=== PATIENT | female | born 1950 | race Caucasian/White ===

== ENCOUNTER 2016-08-02 08:59 | Inpatient (IN) ==
[2016-08-02] MEDS ORDERED: CLINDAMYCIN INJ 600 MG in PREMIX 1 EACH IV STA (09:41)
[2016-08-02] MEDS ORDERED: CLINDAMYCIN INJ 50 ML IV ONE (09:53)
--- NOTE | 2016-08-02 10:04 | XRay Report ---
Referring Physician: Pool Aguilar Exam: XR hand 3V RT Date: August 02, 2016 at 9:40 AM Reason: Infection right hand, status post cat bite, initial encounter Comparison: None Findings: No acute fracture, dislocation or osseous destructive process is identified. There is prominent degenerative change at the fifth DIP and PIP joints with possible osseous fusion at the fifth DIP joint. There is also mild scattered degenerative change at the remaining interphalangeal joints. Impression: 1. No acute osseous process is identified. 2. Degenerative change at the right hand as above, most prominent at the fifth digit. PROCEDURE INTERPRETED AT [facility] DEPARTMENT OF RADIOLOGY Final Report Signed by: Dr. Nahomy Muir
--- NOTE | 2016-08-02 10:22 | Emergency Department Note ---
Maria C Palma Gwan, am scribing for, and in the presence of, Pool Aguilar M.D. 09:33. Jeff Palma Howard T, M.D., personally performed the services described in this documentation, ascribed by Sung Lombardi in my presence, and it is both accurate and complete . Arrival - Arrival Chief Complaint: Animal Bite Stated Complaint: R hand swollen,burning ED Nursing Triage Note: Pt c/o right hand pain, swelling, and redness since yesterday. States he cat bit her right hand 1 wk ago. Mode of Arrival: Ambulatory Limitations: No Limitations Source: Patient, Old Records Reviewed, RN Notes Reviewed Time Seen by Provider: 08/02/16 09:15 - History of Present Illness HPI Narrative: Pt is a 65 y/o female who presents to the ED for further evaluation of pain to the right hand with an onset yesterday. Patient stated that his cat bit him in that area 1 week ago but he began to have erythema, edema and pain yesterday with no relief prompting his visit to the ED today for further evaluation. Patient confirmed that the cat is her pet and that the cat is UTD with immunization. She denies any SOB, fever, N/V or any other injury. No other problems/complaints reported in ED. Onset (ago): week(s) Consistency: constant Severity: moderate Allergies/Adverse Reactions: Allergies Allergy/AdvReac Type Severity Reaction Status Date / Time No Known Allergies Allergy Verified 08/02/16 09:04 Medical,Surgical,& Family Hx - Medical History Endocrine: History of: Thyroid Disorder Musculoskeletal: History of: Musculoskeletal Problems (osteo arthritis) Other: History of: Miscellaneous Medical Problems (Sojurnes) - Social History Smoking Status: Current every day smoker Exam Vital Signs: Vital Signs Temperature 99.9 F H 08/02/16 09:27 Pulse Rate 108 H 08/02/16 09:27 Respiratory Rate 20 08/02/16 09:27 Blood Pressure 184/85 08/02/16 09:27 O2 Sat by Pulse Oximetry 99 08/02/16 09:00 - General General appearance: alert, in no apparent distress - Head Head exam: Present: atraumatic, normocephalic - Extremities Exam Extremities exam: Present: other (erythema, edema and tenderness noted to right upper extremity) - Neurological Exam Neurological exam: Present: alert, oriented X3, CN II-XII intact. Absent: motor sensory deficit - Psychiatric Psychiatric exam: Present: normal affect, normal mood - Skin Skin exam: Present: other (erythema, edema and tenderness noted to right upper extremity) Course Course Narrative: Medical decision making: Significant cellulitis of the right hand extending up the right arm, will admit for IV antibiotics to the hospitalist overnight. Results - Diagnostic Findings Procedure: X-ray: report reviewed by me (R hand: no evidence of osteo or FB) Disposition Clinical Impression: Cat bite, Right arm cellulitis, Cellulitis of right hand Case discussed with: patient, patient's family Disposition: Disch/Xfer-[facility]ps[facility] Term Hos Condition: Stable Time of Disposition: 10:22
[2016-08-02 10:37] LABS: Basophils % 0.2 % (0.0-0.8); Eosinophils % 0.1 % (0.00-10.9); Hematocrit 36.4 VOL% (35.7-47.0); Hemoglobin 12.6 GM/DL (12.0-16.0); Immature Granulocytes % 0.4 %; Immature Granulocytes Absolute 0.05 #; Lymphocytes # 0.7 10*3/uL (1.4-4.0); Lymphocytes % 5.9 % (21.3-54.2); Mean Corpuscular HGB Conc 34.6 GM/DL (32-36); Mean Corpuscular Hemoglobin 33 PG (27-34); Mean Corpuscular Volume 95.8 FL (87-102); Mean Platelet Volume 10.1 FL (9.6-12.0); Monocytes # 0.7 10*3/uL (0.11-0.8); Monocytes % 6.4 % (1.7-12.7); Neutrophils # 9.9 10*3/uL (1.4-7.4); Platelet Count 144 T/CUMM (130-400); Red Cell Distribution Width 13.2 % (9.3-17.3); White Blood Count 11.3 T/CUMM (4-12)
[2016-08-02 10:56] LABS: Osmolality,Calculated 276.5 MOS/KG (273-304); Potassium 3.7 MMOL/L (3.5-5.1)
--- NOTE | 2016-08-02 11:05 | Hospitalist History & Physical ---
<Lea Wells - Last Filed: 08/02/16 11:13> Assessment and Plan (1) Cellulitis of right hand Status: Acute Assessment and plan: Will start empiric antibiotics and hydrate. Current Visit: Yes (2) Right arm cellulitis Status: Acute Assessment and plan: Will start empiric antibiotics, DVT prophylaxis, and manage pain. Current Visit: Yes (3) Nicotine addiction Status: Acute Assessment and plan: Discussed in great detail smoking cessiation, patient has no desire to stop. Nicotine patch offered admission. Current Visit: Yes History of Present Illness Chief complaint: right hand pain History of present illness: This is a very pleasant 65 year old female that presented to the ED at [facility] this morning for evaluation of her right hand. She was a medical history significant for hypothyroidism,osteoarthritis, nicotine abuse , and Sjogren's syndrome. She reports no surgical history at the time of presentation. She is a current smoker. She reports that her cat bit her right hand over a week ago. She reports that her cat's immunization's are up-to-date. She attempted to treat the area at home; however she noted that her right arm became red, warm, painful, and swollen on yesterday. The pain became unbearable on this morning prompting her to present the ED for further evaluation. Labs were obtained; which were essentially unremarkable. After discussion with both Dr. Aguilar and Dr. Hills, the patient will be admitted to the hospitalist service for continuation of care. Home Medications Medication Instructions Recorded Confirmed Type Cholecalciferol (Vitamin D3) 2,000 unit PO 1200 08/02/16 08/02/16 History [Vitamin D3] Hydroxychloroquine [Plaquenil] 200 mg PO BID 08/02/16 08/02/16 History Levothyroxine Tab [Synthroid Tab] 150 mcg PO BEDTIME 08/02/16 08/02/16 History predniSONE TAB [PredniSONE] 5 mg PO QAM 08/02/16 08/02/16 History Allergies Allergy/AdvReac Type Severity Reaction Status Date / Time No Known Allergies Allergy Verified 08/02/16 13:28 Medical,Surgical,& Family Hx - Medical History Endocrine: History of: Thyroid Disorder Musculoskeletal: History of: Musculoskeletal Problems (osteo arthritis) Other: History of: Miscellaneous Medical Problems (Sojurnes) - Social History Smoking Status: Current every day smoker Have you smoked in the last 12 months: Yes Time spent discussing smoking cessation with patient: more than 10 minutes Frequency of Alcohol Use: None Type of Drug Use: None Marital Status: Single Lives With:: Alone Functional capacity: independent ambulation 12 point system: reviewed and no additional remarkable complaints except as stated Exam - Constitutional Vitals: Period Temp Pulse Resp BP Sys/Lowery Pulse Ox Last 24 Hr 99.9 F-99.9 F 108-108 20-20 184-184/85-85 99 General appearance: normal weight, no acute distress - Head Head exam: Present: normal inspection, normocephalic, atraumatic - Eye Eye exam: Present: EOMI. Absent: conjunctival injection, nystagmus Pupils: Present: STEPHANY, normal accommodation - ENT ENT exam: Present: normal exam, normal external ear exam, normal oropharynx - Neck Neck exam: Present: normal inspection. Absent: lymphadenopathy, meningismus, tenderness, thyromegaly - Respiratory Respiratory exam: Present: clear to auscultation bilaterally. Absent: rales, rhonchi, stridor, wheezes - Cardiovascular Cardiovascular exam: Present: regular rate and rhythm. Absent: carotid bruit, diastolic murmur, gallop, JVD, rubs, systolic murmur - GI/Abdominal GI/Abdominal exam: Present: normal bowel sounds, soft. Absent: firm, guarding, tenderness - Extremities Exam Extremities exam: Present: normal capillary refill, full ROM, edema (right arm) , other (small open area to right hand) - Back Exam Back exam: Present: normal inspection - Neurological Exam Neurological exam: Present: alert, oriented X3, CN II-XII intact - Psychiatric Psychiatric exam: Present: normal affect, normal mood - Skin Skin exam: Present: normal color, warm, dry Results - Labs CBC & BMP: 08/02/16 10:24 08/02/16 10:24 Lab Results: I have reviewed the past 24 hour labs <Lonnie Hills - Last Filed: 08/02/16 15:33> History of Present Illness History of present illness: Patient seen and examined along with USAMA Wells, agree with history, assessment and plan as documented. 65 y/o WF presents s/p cat bite 1 week ago, now with right hand pain, redness and swelling which started yesterday. 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 This makes a toxo infection unlikely. But she does have sjogren's syndrome , on prednisone and plaquenil. So she does have reasons to be immunocompromised. She is afebrle without leukocytosis. Will monitor overnight, treat with IV antibiotics. If improved, possible discharge tomorrow. Exam - Constitutional Vitals: Period Temp Pulse Resp BP Sys/Lowery Pulse Ox Last 24 Hr 99.5 F 89 20 151/75 97 Results - Labs CBC & BMP: 08/02/16 10:24 08/02/16 10:24
[2016-08-02] MEDS ORDERED: DIPH/TET/ACEL PERT BOOSTER VACCINE 0.5 ML VIAL IM ONE ×2 (11:38→11:58)
[2016-08-02] MEDS ORDERED: ACETAMINOPHEN 325 MG TABLET PO PRN (13:23)
[2016-08-02] MEDS ORDERED: NICOTINE 21 MG/24 HR PATCH TRANSDERM PRN (13:23)
[2016-08-02] MEDS ORDERED: ZALEPLON 5 MG CAPSULE PO PRN (13:23)
[2016-08-02] MEDS ORDERED: ONDANSETRON 4 MG/2 ML VIAL IV PRN (13:23)
[2016-08-02] MEDS ORDERED: DOCUSATE SODIUM 100 MG CAPSULE PO PRN (13:23)
[2016-08-02] MEDS: CLINDAMYCIN INJ 600 MG in PREMIX 1 EACH IV SCH ×3 (13:33→22:37)
[2016-08-02] MEDS: CHOLECALCIFEROL 1,000 UNIT TABLET PO SCH (13:40)
[2016-08-02] MEDS: SODIUM CHLORIDE 0.9% 1,000 ML IV SCH ×2 (13:40→22:37)
[2016-08-02] MEDS: ENOXAPARIN 40 MG/0.4 ML SYRINGE SUBCUT SCH (13:40)
[2016-08-02] MEDS: HYDROXYCHLOROQUINE 200 MG TABLET PO SCH (21:14)
[2016-08-02] MEDS: LEVOTHYROXINE 150 MCG TABLET PO SCH (21:15)
[2016-08-03] MEDS: CLINDAMYCIN INJ 600 MG in PREMIX 1 EACH IV SCH ×4 (06:02→20:53)
[2016-08-03] MEDS: SODIUM CHLORIDE 0.9% 1,000 ML IV SCH ×2 (06:02→15:35)
[2016-08-03 06:41] LABS: Basophils % 0.3 % (0.0-0.8); Eosinophils % 0.2 % (0.00-10.9); Hematocrit 33.3 VOL% (35.7-47.0); Hemoglobin 11.1 GM/DL (12.0-16.0); Immature Granulocytes % 0.8 %; Immature Granulocytes Absolute 0.05 #; Lymphocytes % 16.2 % (21.3-54.2); Mean Corpuscular HGB Conc 33.3 GM/DL (32-36); Mean Corpuscular Hemoglobin 32 PG (27-34); Mean Corpuscular Volume 96.5 FL (87-102); Mean Platelet Volume 10.7 FL (9.6-12.0); Monocytes # 0.5 10*3/uL (0.11-0.8); Monocytes % 8.4 % (1.7-12.7); Neutrophils # 4.7 10*3/uL (1.4-7.4); Neutrophils % 74.1 % (38.7-73.9); Platelet Count 122 T/CUMM (130-400); Red Blood Count 3.45 MC/CUMM (3.8-5.5); Red Cell Distribution Width 13.4 % (9.3-17.3); White Blood Count 6.3 T/CUMM (4-12)
[2016-08-03 07:23] LABS: Albumin 3.1 G/DL (3.4-5.0); Calcium 8.4 MG/DL (8.5-10.1); Magnesium 2.3 MG/DL (1.8-2.4); Potassium 3.8 MMOL/L (3.5-5.1); Risk Ratio 2.1; Thyroid Stimulating Hormone 2.2 uIU/ml (0.358-3.74); Total Protein 5.6 G/DL (6.4-8.3)
[2016-08-03] MEDS: ENOXAPARIN 40 MG/0.4 ML SYRINGE SUBCUT SCH (09:53)
[2016-08-03] MEDS: HYDROXYCHLOROQUINE 200 MG TABLET PO SCH ×2 (09:53→20:53)
[2016-08-03] MEDS: predniSONE 5 MG TABLET PO SCH (09:53)
[2016-08-03] MEDS: PANTOPRAZOLE 40 MG TABLET PO SCH (09:53)
--- NOTE | 2016-08-03 10:02 | Hospitalist Progress Note ---
Assessment and Plan - Time spent with patient Time spent with patient: Greater than 30 minutes (1) Cellulitis of right hand Status: Acute Assessment and plan: Continue clindamycin. It appears to be rapidly improving. Current Visit: Yes Hospitalist: Subjective Interval history: Reports improvement in her hand cellulitis with improvement in her ROM. Exam - Constitutional Vitals: Period Temp Pulse Resp BP Sys/Lowery Pulse Ox Last 24 Hr 98.2 F-99.5 F 68-95 18-20 134-151/64-75 93-98 General appearance: normal weight, no acute distress - Head Head exam: Present: normocephalic, atraumatic - Eye Eye exam: Present: EOMI Pupils: Present: STEPHANY - ENT ENT exam: Present: normal exam - Neck Neck exam: Present: normal inspection - Respiratory Respiratory exam: Present: clear to auscultation bilaterally. Absent: rhonchi, wheezes - Cardiovascular Cardiovascular exam: Present: regular rate and rhythm. Absent: gallop, rubs, systolic murmur - GI/Abdominal GI/Abdominal exam: Present: normal bowel sounds, soft. Absent: distended, firm , guarding, tenderness, rebound - Extremities Exam Extremities exam: Present: normal inspection, other (right hand erythema and swelling over the metacarpophalangeal joints. Marking on forearm indicating previous cellulits has resolved.). Absent: calf tenderness, edema Results - Labs CBC & BMP: 08/03/16 05:02 08/03/16 05:02 Lab Results: I have reviewed the past 24 hour labs
[2016-08-03] MEDS: CHOLECALCIFEROL 1,000 UNIT TABLET PO SCH (11:58)
[2016-08-03] MEDS: LEVOTHYROXINE 150 MCG TABLET PO SCH (20:53)
[2016-08-04] MEDS: SODIUM CHLORIDE 0.9% 1,000 ML IV SCH (00:30)
[2016-08-04] MEDS: CLINDAMYCIN INJ 600 MG in PREMIX 1 EACH IV SCH ×2 (02:57→08:50)
[2016-08-04 06:58] LABS: Basophils % 0.3 % (0.0-0.8); Eosinophils % 0.8 % (0.00-10.9); Hemoglobin 10.1 GM/DL (12.0-16.0); Immature Granulocytes % 1.1 %; Immature Granulocytes Absolute 0.04 #; Lymphocytes # 0.8 10*3/uL (1.4-4.0); Mean Corpuscular HGB Conc 32.6 GM/DL (32-36); Mean Corpuscular Hemoglobin 33 PG (27-34); Mean Corpuscular Volume 99.7 FL (87-102); Mean Platelet Volume 10.5 FL (9.6-12.0); Monocytes # 0.4 10*3/uL (0.11-0.8); Monocytes % 11.3 % (1.7-12.7); Neutrophils # 2.4 10*3/uL (1.4-7.4); Neutrophils % 65.5 % (38.7-73.9); Platelet Count 111 T/CUMM (130-400); Red Blood Count 3.11 MC/CUMM (3.8-5.5); Red Cell Distribution Width 13.2 % (9.3-17.3); White Blood Count 3.7 T/CUMM (4-12)
[2016-08-04 07:26] LABS: Calcium 7.9 MG/DL (8.5-10.1); Osmolality,Calculated 288.4 MOS/KG (273-304)
[2016-08-04] MEDS: ENOXAPARIN 40 MG/0.4 ML SYRINGE SUBCUT SCH (08:50)
[2016-08-04] MEDS: predniSONE 5 MG TABLET PO SCH (08:51)
[2016-08-04] MEDS: HYDROXYCHLOROQUINE 200 MG TABLET PO SCH (08:51)
[2016-08-04] MEDS: PANTOPRAZOLE 40 MG TABLET PO SCH (08:51)
[2016-08-04 10:16] VITALS: BP 147/75
--- NOTE | 2016-08-04 10:27 | Discharge Summary ---
Hospital Course - Hospital Course Hospital Course: Ms. Kearns was admitted for management of right hand cellulitis. She started on clindamycin. Fever and elevated white blood cell count resolved. Erythema and cellulitis also vastly improved. By discharge patient had met maximum benefit of hospitalization. She will be discharged with completion of treatment. I spent 35 minutes coordinating this discharge. - Time spent with patient Time with patient DS: Greater than 30 minutes Diagnosis - Discharge Diagnosis (1) Cellulitis of right hand Status: Acute Discharge Plan - Discharge Data Disposition: Disch To Home/Self Care Condition at Discharge: Stable Discharge Diet: advance to your usual diet Activity: resume usual activities as tolerated - Discharge Medications New Clindamycin HCl [Clindamycin Cap] 600 mg PO Q6HR #64 capsule Nicotine 21 mg/24 Hr Patch [Nicoderm CQ 21 mg/24 hr Patch] 1 patch TRANSDERM DAILY PRN #30 patch PRN Reason: Nicotine Cravings Continue predniSONE TAB [PredniSONE] 5 mg PO QAM Levothyroxine Tab [Synthroid Tab] 150 mcg PO BEDTIME Hydroxychloroquine [Plaquenil] 200 mg PO BID Cholecalciferol (Vitamin D3) [Vitamin D3] 2,000 unit PO 1200 - Follow Up or Referral - Forms/Instructions Exam - Constitutional Vitals: Period Temp Pulse Resp BP Sys/Lowery Pulse Ox Last 24 Hr 97.6 F-99.4 F 63-87 18-20 135-154/46-82 94-99 General appearance: normal weight, no acute distress - Head Head exam: Present: normal inspection, normocephalic, atraumatic - Eye Eye exam: Present: EOMI Pupils: Present: STEPHANY - ENT ENT exam: Present: normal exam - Neck Neck exam: Present: normal inspection - Respiratory Respiratory exam: Present: clear to auscultation bilaterally. Absent: accessory muscle use, prolonged expiratory phase, wheezes - Cardiovascular Cardiovascular exam: Present: regular rate and rhythm. Absent: bradycardia, irregular rhythm, systolic murmur - GI/Abdominal GI/Abdominal exam: Present: normal bowel sounds. Absent: ascites, distended, hypoactive bowel sounds, tenderness - Extremities Exam Extremities exam: Present: normal inspection, other (right hand erythema over metacarpophalangeal joints vastly improved.) Discharge Results Labs on day of discharge: Labs from last 24 hours 05/09/17 05/09/17 06:23 06:23 WBC 3.7 L D RBC 3.11 L Hgb 10.1 L Hct 31.0 L MCV 99.7 MCH 33 MCHC 32.6 RDW 13.2 Plt Count 111 L MPV 10.5 Neut % (Auto) 65.5 Lymph % (Auto) 21.0 L [place] % (Auto) 11.3 Eos % (Auto) 0.8 Baso % (Auto) 0.3 Neut # (Auto) 2.4 Lymph # (Auto) 0.8 L [place] # (Auto) 0.4 Eos # (Auto) 0.0 Baso # (Auto) 0.0 Immature Gran % 1.1 Nucleated RBC % 0.0 Immature Gran # 0.04 Nucleated RBCs # 0.00 Sodium 147 H Potassium 4.0 Chloride 115 H Carbon Dioxide 25 Anion Gap 11.0 BUN 6 L Creatinine 0.50 L GFR Calculation 114 BUN/Creatinine Ratio 12.00 Glucose 87 Calculated Osmolality 288.4 Calcium 7.9 L DS: Provider Date of admission: 08/02/16 11:20 Primary care physician: . No PCP Attending physician on admission: Lonnie Hills MD Consults: 08/02/16 13:27 Consult to Pharmacy [CONS] Routine Reason for Pharmacy Consult: Adjust Meds Renal Funct Discharging clinician: Supriya Conn MD Expected date of discharge: 08/04/16
== END 2016-08-04 10:50 | disposition home or self-care (01) | DRG 603 ==
LOC: N.ED 08:59 → N.EDINP 11:20 → SUATTDRO 11:20 → N.2E 12:48
PROVIDERS: ADMIT Internal Medicine; ATTEND Internal Medicine